=== PATIENT | male | born 1960 ===

== ENCOUNTER 2018-09-22 09:25 | Emergency (ER) | payer SELFPAY ==
[2018-09-22 09:32] VITALS: BP 128/88
[2018-09-22] MEDS ORDERED: PERCOCET 5/325 PO ONE (09:45)
[2018-09-22] MEDS ORDERED: KEFLEX PO ONE (09:45)
[2018-09-22] MEDS ORDERED: BOOSTRIX IM ONE (09:45)
[2018-09-22] MEDS ORDERED: XYLOCAINE 1% 20 mL ONE (09:48)
--- NOTE | 2018-09-22 09:49 | Emergency Department Report ---
Upper Extremity - HPI Chief Complaint: Extremity Injury, Upper Stated Complaint: FINGER LAC Time Seen by Provider: 09/22/18 09:44 Upper Extremity: Right Ring Finger Occurred When: Today Mechanism: Hit with Object, Crush Severity: severe Symptoms: Yes Pain with Movement, Yes Deformity, Yes Limited Range of Movement, Yes Laceration or Abrasion, No Numbness, No Weakness, No Swelling, No Bruising/Ecchymosis Other History: CC: "I almost cut my finger off.". HPI: Mr. Joyce is a healthy 58-year-old right-hand dominant male who partially amputated his right ring finger. A large heavy metal box fell onto his right finger. He has severe pain. No other injuries. The injury involves the distal portion of the finger with nail involvement. ED Review of Systems ROS: Stated complaint: FINGER LAC Other details as noted in HPI Skin: rash, lesions, change in hair/nails Neurological: denies: numbness, paresthesias ED Past Medical Hx - Past Medical History Previous Medical History?: No - Surgical History Past Surgical History?: Yes Additional Surgical History: left AKA. right BKA - Social History Smoking Status: Never Smoker Substance Use Type: Marijuana - Medications Home Medications: Home Medications Medication Instructions Recorded Confirmed Last Taken Type cephALEXin [Keflex] 500 mg PO Q6HR 7 Days #28 capsule 09/22/18 Unknown Rx oxyCODONE /ACETAMINOPHEN [Percocet 1 tab PO Q6HR PRN #15 tablet 09/22/18 Unknown Rx 5/325] Upper Extremity Exam - Exam General: Vital signs noted. No distress. Alert and acting appropriately. Partial amputation of the distal right finger deep laceration involving the volar surface of the finger to deep to the subcutaneous tissue with partial avulsion of the nail Head and Torso: No HEENT Abnormality, No Neck Tenderness Arm Exam: No Arm/Humerus Tenderness, No Arm Deformity Elbow: Yes Normal Range of Motion in Elbow, No Elbow Tenderness, No Elbow Deformity Forearm: No Forearm Tenderness, No Forearm Deformity, No Pain with Pronation, No Pain with Supination Wrist: Yes Normal ROM in Wrist, No Wrist Tenderness, No Wrist Deformity Hand: Yes Hand Deformity CMS Exam: Yes Broken Skin ED Course Vital Signs 09/22/18 09:31 Temperature 98.5 F Pulse Rate 71 Respiratory 19 Rate Blood Pressure 128/88 [Right] O2 Sat by Pulse 96 Oximetry - Laceration /Wound Repair Right Finger Wound Location: upper extremity Wound's Depth, Shape: into muscle Wound Explored: clean Betadine Prep?: Yes Anesthesia: 1% Lidocaine Volume Anesthetic (ccs): 5 Wound Debrided: moderate Wound Repaired With: sutures Suture Size/Type: 6:0, proline Layer Closure?: No Sterile Dressing Applied?: Yes Progress: Digital block performed with 5 mL 1% lidocaine at the base of the ring finger, 5 sutures 6-0 Prolene provided good skin closure. I used Dermabond to repair the skin overlying the nail bed. ED Medical Decision Making - Radiology Data Radiology results: report reviewed interpreted by me: The distal phalanx displaced fracture fourth digit - Medical Decision Making Mr. Joyce presents with partial amputation of the distal ring finger right hand. Open distal phalanx fracture. I repaired laceration and nail bed injury. tdap and PO antibiotics administered in the ED. I referred patient to hand surgeon. Also recommended [facility] for [facility]. He understands he needs follow-up with hand surgeon within the next week. Prescribed Percocet and cephalexin. Critical care attestation.: If time is entered above; I have spent that time in minutes in the direct care of this critically ill patient, excluding procedure time. ED Disposition Clinical Impression: Finger near amputation, right, Fracture of distal phalanx of finger of right hand Disposition: DC-01 TO HOME OR SELFCARE Is pt being admited?: No Does the pt Need Aspirin: No Condition: Stable Additional Instructions: Please keep wound covered until you see a hand surgeon this week. Prescriptions: cephALEXin [Keflex] 500 mg PO Q6HR 7 Days #28 capsule oxyCODONE /ACETAMINOPHEN [Percocet 5/325] 1 tab PO Q6HR PRN #15 tablet PRN Reason: Pain Referrals: THIERNO DAVIS MD [Referring] - [facility]
[2018-09-22] MEDS ORDERED: XYLOCAINE 1% 20 mL INFILTRATI ONE (10:05)
[2018-09-22] MEDS ORDERED: NACL 0.9% 500 ML IR ONE (10:40)
[2018-09-22] MEDS ORDERED: NACL 0.9% IR ONE (10:40)
--- NOTE | 2018-09-22 11:16 | XRay Report ---
RIGHT FINGERS, 3 VIEWS History: Fourth digit laceration, partial amputation Findings: A comminuted fracture of the distal phalanx of the fourth digit with associated soft tissue defect is noted. The remaining bony structures are intact. Mild osteopenia is noted. Mild diffuse osteoarthritic changes. Impression: Comminuted fracture, distal phalanx, fourth digit.
== END 2018-09-22 11:38 | disposition home or self-care (01) ==
LOC: ED 09:25
DX: S62.639A Displaced fracture of distal phalanx of unspecified finger, initial encounter for closed fracture (principal); F12.10 Cannabis abuse, uncomplicated; Z98.890 Other specified postprocedural states; W22.8XXA Striking against or struck by other objects, initial encounter; Y93.89 Activity, other specified; Y92.89 Other specified places as the place of occurrence of the external cause; Y99.8 Other external cause status
CPT/HCPCS: 90471; 90715